=== PATIENT | female | born 1955 | race Hispanic/Latino ===

== ENCOUNTER 2021-09-19 08:48 | Observation (INO) | payer OTHER ==
[2021-09-16 11:20] LABS: BASOPHILS % (AUTO) 0.8 % (0.0-5.0); EOSINOPHILS % (AUTO) 1.1 % (0.0-8.0); HEMATOCRIT 39.9 % (36-48); LYMPHOCYTES % (AUTO) 26.8 % (21.0-51.0); MEAN CORPUSCULAR HEMOGLOBIN 31.4 pg (27.0-33.0); MEAN CORPUSCULAR HGB CONC 33.8 g/dL (32.0-36.0); MEAN CORPUSCULAR VOLUME 92.8 fL (79-99); MONOCYTES % (AUTO) 6.3 % (3.0-13.0); NEUTROPHILS % (AUTO) 64.2 % (40.0-77.0); PLATELET COUNT (AUTO) 291 K/uL (130-400); RED CELL DISTRIBUTION WIDTH 11.7 % (11.0-15.5)
[2021-09-16 11:30] LABS: APPEARANCE,URINE Clear (CLEAR); BILIRUBIN,URINE Negative (NEGATIVE); COLOR,URINE Yellow (YELLOW); GLUCOSE, URINE (UA) Negative (NEGATIVE); KETONES,URINE Negative (NEGATIVE); LEUKOCYTE ESTERASE ,URINE Small (NEGATIVE); NITRATE,URINE Negative (NEGATIVE); OCCULT BLOOD,URINE Negative (NEGATIVE); PH,URINE 6.5 (5.0-8.0); PROTEIN,URINE Negative (NEGATIVE)
[2021-09-16 11:35] VITALS: BP 134/64
[2021-09-16 11:37] LABS: CREATININE 0.8 mg/dL (0.5-1.5); POTASSIUM 3.8 mmol/L (3.5-5.1)
[2021-09-16 11:42] LABS: PROTHROMBIN TIME 10.9 SEC (9.6-11.6)
[2021-09-16 12:10] LABS: BACTERIA,URINE Few /HPF (None Seen); RBC,URINE 0-1 /HPF (0-1)
[2021-09-19] VITALS (22 sets, daily range): BP systolic 96–142; BP diastolic 43–89
[~2021-09-19] VITALS: Ht 152.4 cm; Wt 110.0 kg
[~2021-09-19 08:48] MED LIST: AEC81 PO; ALEN70TA80 PO; ATOR10TA69 PO; BLACK ELDERBERRY PO; CEFAZOLIN SODIUM 1 GM VIAL IVP SCH; DULA1.5P SQ; DULO60CA64 PO; FOLI-103 PO; GABA-533 PO; LISI20TA24 PO; METF-444 PO; TOPI50TA24 PO; TRAZ-185 PO
[2021-09-19] MEDS ORDERED: GENTAMICIN SULFATE 240 MG in 0.9%NACL 100ML 100 ML IV SCH (09:00)
[2021-09-19] MEDS ORDERED: 0.9%NACL 1000ML 1,000 ML IV ONE ×2 (09:47)
[2021-09-19] MEDS ORDERED: CELECOXIB 200 MG CAP ONE (13:18)
[2021-09-19] MEDS ORDERED: KETOROLAC 15MG/ML VIAL (15MG/ML) ONE (13:18)
[2021-09-19] MEDS ORDERED: ACETAMINOPHEN 500 MG TABLET ONE (13:18)
[2021-09-19] MEDS ORDERED: METOCLOPRAMIDE 10 MG/2 ML VIAL ONE (13:18)
[2021-09-19] MEDS ORDERED: CEFAZOLIN SODIUM 1 GM VIAL ONE (13:20)
[2021-09-19] MEDS ORDERED: TRANEXAMIC ACID 1000MG/10ML ONE ×2 (13:21→17:10)
[2021-09-19] MEDS ORDERED: LIDOCAINE PF 100MG/5ML (2%) SYRINGE 5ML ONE (14:18)
[2021-09-19] MEDS ORDERED: FENTANYL CITRATE PF 50 MCG/1 ML 2ML VIAL ONE ×2 (14:18→15:34)
[2021-09-19] MEDS ORDERED: SUCCINYLCHOLINE CHLORIDE 20 MG/ML 10 ML VIAL ONE (14:18)
[2021-09-19] MEDS ORDERED: ROCURONIUM 10MG/1ML SYR 10 MG/ML ML ONE ×2 (14:19→15:11)
[2021-09-19] MEDS ORDERED: PROPOFOL 10 MG/ML 20ML VIAL IV ONE ×2 (14:19→15:32)
[2021-09-19] MEDS ORDERED: MIDAZOLAM HCL 1 MG/ML 2ML VIAL ONE (14:19)
[2021-09-19] MEDS ORDERED: ROPIVACAINE 0.5% 5MG/ML 30ML IJ ONE (14:20)
[2021-09-19] MEDS ORDERED: EPHEDRINE SULFATE 50 MG/ML AMPULE ONE (14:56)
[2021-09-19] MEDS ORDERED: GLYCOPYRROLATE 1 MG/5 ML SYRINGE ONE ×2 (15:26→17:14)
[2021-09-19] MEDS ORDERED: TEMAZEPAM 15 MG CAPSULE PO PRN (17:00)
[2021-09-19] MEDS ORDERED: POTASSIUM CHLORIDE 20MEQ/100ML 100 ML IV PRN (17:00)
[2021-09-19] MEDS ORDERED: KCL 20 MEQ ERTAB PO PRN (17:00)
[2021-09-19] MEDS ORDERED: POTASSIUM CHLORIDE 10% ELIXIR 20 MEQ/15 ML UDCUP PO PRN (17:00)
[2021-09-19] MEDS: ACETAMINOPHEN 500 MG TABLET PO SCH (17:00)
[2021-09-19] MEDS ORDERED: FERROUS FUMARATE 324 MG TABLET PO PRN (17:00)
[2021-09-19] MEDS ORDERED: OXYCODONE HCL 5 MG TAB PO PRN (17:00)
[2021-09-19] MEDS ORDERED: LIDOCAINE HCL-MPF 1% 2ML VIAL IV PRN (17:00)
[2021-09-19] MEDS ORDERED: CALCIUM CARB 500MG PO PRN (17:00)
[2021-09-19] MEDS ORDERED: DiphenhydrAMINE HCL 50 MG/ML VIAL IVP PRN (17:00)
[2021-09-19] MEDS ORDERED: TRAMADOL HCL 50 MG TABLET PO PRN (17:00)
[2021-09-19] MEDS ORDERED: ONDANSETRON 4MG INJ IVP PRN (17:00)
[2021-09-19] MEDS ORDERED: NEOSTIGMINE 5MG/5ML SYR IV ONE (17:14)
[2021-09-19] MEDS ORDERED: DiphenhydrAMINE HCL 50 MG/ML VIAL ONE (18:00)
[2021-09-19] MEDS ORDERED: MEPERIDINE-PF 25 MG/ML SYG ONE (18:10)
[2021-09-19] MEDS ORDERED: PREGABALIN 25 MG CAP PO SCH (21:00)
[2021-09-19] MEDS: INSULIN HUMULIN R 100 UNIT/ML 3ML SQ SCH (21:00)
[2021-09-19] MEDS: FAMOTIDINE 20MG TAB PO SCH (21:12)
[2021-09-19] MEDS: CELECOXIB 200 MG CAP PO SCH (21:13)
[2021-09-19] MEDS: 0.9%NACL 1000ML 1,000 ML IV SCH (21:14)
[2021-09-19] MEDS: CEFAZOLIN SODIUM 1 GM VIAL IVP SCH (21:18)
[2021-09-20 00:30] VITALS: BP 123/64
[2021-09-20] MEDS: 0.9%NACL 1000ML 1,000 ML IV SCH ×2 (03:00→08:51)
[2021-09-20] MEDS: ACETAMINOPHEN 500 MG TABLET PO SCH ×3 (03:21→21:27)
[2021-09-20 04:00] VITALS: BP 123/67
[2021-09-20 04:14] LABS: HEMATOCRIT 35.3 % (36-48); MEAN CORPUSCULAR HEMOGLOBIN 31.2 pg (27.0-33.0); MEAN CORPUSCULAR VOLUME 97.5 fL (79-99); RED BLOOD CELL COUNT(AUTO) 3.62 MIL/uL (4.00-5.50); RED CELL DISTRIBUTION WIDTH 11.8 % (11.0-15.5); WHITE BLOOD COUNT (AUTO) 11.8 K/uL (4.8-10.8)
[2021-09-20 04:32] LABS: CREATININE 0.9 mg/dL (0.5-1.5); POTASSIUM 4.4 mmol/L (3.5-5.1)
[2021-09-20] MEDS: CEFAZOLIN SODIUM 1 GM VIAL IVP SCH (06:14)
[2021-09-20] MEDS: INSULIN HUMULIN R 100 UNIT/ML 3ML SQ SCH ×4 (06:16→21:00)
[2021-09-20 07:58] VITALS: BP 139/63
[2021-09-20] MEDS: FAMOTIDINE 20MG TAB PO SCH ×2 (08:49→21:21)
[2021-09-20] MEDS: TOPIRAMATE 25 MG TABLET PO SCH ×2 (08:49→21:20)
[2021-09-20] MEDS: DULOXETINE HCL 30 MG CAP PO SCH ×2 (08:49→17:04)
[2021-09-20] MEDS: APIXABAN 2.5 MG TABLET PO SCH ×2 (08:50→21:21)
[2021-09-20] MEDS: METFORMIN HCL 500 MG TABLET PO SCH ×2 (08:50→16:59)
[2021-09-20] MEDS: LISINOPRIL 20 MG TABLET PO SCH (08:50)
[2021-09-20] MEDS: CELECOXIB 200 MG CAP PO SCH ×2 (08:50→21:21)
[2021-09-20] MEDS: POLYETHYLENE GLYCOL 3350 17 GM POWD.PACK PO SCH (08:51)
[2021-09-20] MEDS ORDERED: GABAPENTIN 100 MG CAPSULE PO SCH (09:00)
[2021-09-20] MEDS ORDERED: NON-FORMULARY MEDICATION 1 EACH (Topiramate 50 MG) PO SCH (09:00)
[2021-09-20] MEDS ORDERED: NON-FORMULARY MEDICATION 1 EACH (Duloxetine HCl 60 MG) PO SCH (09:00)
[2021-09-20] MEDS ORDERED: NON-FORMULARY MEDICATION 1 EACH (Gabapentin 400 MG) PO SCH (09:00)
[2021-09-20 10:52] VITALS: BP 136/68
[2021-09-20] MEDS: GABAPENTIN 100 MG CAPSULE PO SCH ×2 (13:47→21:22)
[2021-09-20] MEDS: OXYCODONE HCL 5 MG TAB PO PRN (15:49)
[2021-09-20 16:05] VITALS: BP 137/76
[2021-09-20 20:27] VITALS: BP 128/60
[2021-09-20] MEDS: TRAZODONE HCL 50 MG TAB PO SCH (21:21)
[2021-09-20] MEDS: ATORVASTATIN 10 MG TABLET PO SCH (21:21)
[2021-09-21] VITALS (7 sets, daily range): BP systolic 114–139; BP diastolic 65–95
[2021-09-21] MEDS: INSULIN HUMULIN R 100 UNIT/ML 3ML SQ SCH ×4 (06:26→20:52)
[2021-09-21] MEDS: OXYCODONE HCL 5 MG TAB PO PRN ×2 (06:29→10:13)
[2021-09-21] MEDS: GABAPENTIN 100 MG CAPSULE PO SCH ×3 (06:29→22:35)
[2021-09-21] MEDS: ACETAMINOPHEN 500 MG TABLET PO SCH ×3 (06:30→22:35)
[2021-09-21] MEDS: FAMOTIDINE 20MG TAB PO SCH ×2 (10:12→19:48)
[2021-09-21] MEDS: DULOXETINE HCL 30 MG CAP PO SCH ×2 (10:12→19:48)
[2021-09-21] MEDS: TOPIRAMATE 25 MG TABLET PO SCH ×2 (10:13→19:49)
[2021-09-21] MEDS: CELECOXIB 200 MG CAP PO SCH ×2 (10:13→19:49)
[2021-09-21] MEDS: APIXABAN 2.5 MG TABLET PO SCH ×2 (10:14→19:48)
[2021-09-21] MEDS: LISINOPRIL 20 MG TABLET PO SCH (10:18)
[2021-09-21] MEDS: METFORMIN HCL 500 MG TABLET PO SCH ×2 (10:18→16:11)
[2021-09-21] MEDS: POLYETHYLENE GLYCOL 3350 17 GM POWD.PACK PO SCH (10:18)
[2021-09-21] MEDS: TRAZODONE HCL 50 MG TAB PO SCH (19:48)
[2021-09-21] MEDS: ATORVASTATIN 10 MG TABLET PO SCH (19:49)
[2021-09-22 04:32] VITALS: BP 127/65
[2021-09-22] MEDS: GABAPENTIN 100 MG CAPSULE PO SCH ×2 (06:02→14:31)
[2021-09-22] MEDS: ACETAMINOPHEN 500 MG TABLET PO SCH ×2 (06:03→14:32)
[2021-09-22] MEDS: INSULIN HUMULIN R 100 UNIT/ML 3ML SQ SCH ×2 (06:06→11:30)
[2021-09-22 08:11] VITALS: BP 140/74
[2021-09-22] MEDS: OXYCODONE HCL 5 MG TAB PO PRN (09:15)
[2021-09-22] MEDS: TOPIRAMATE 25 MG TABLET PO SCH (09:15)
[2021-09-22] MEDS: FAMOTIDINE 20MG TAB PO SCH (09:16)
[2021-09-22] MEDS: POLYETHYLENE GLYCOL 3350 17 GM POWD.PACK PO SCH (09:16)
[2021-09-22] MEDS: LISINOPRIL 20 MG TABLET PO SCH (09:16)
[2021-09-22] MEDS: APIXABAN 2.5 MG TABLET PO SCH (09:16)
[2021-09-22] MEDS: CELECOXIB 200 MG CAP PO SCH (09:16)
[2021-09-22] MEDS: DULOXETINE HCL 30 MG CAP PO SCH (09:16)
[2021-09-22] MEDS: METFORMIN HCL 500 MG TABLET PO SCH (09:18)
[2021-09-22 10:54] VITALS: BP 120/75
[2021-09-22] MEDS ORDERED: HYDR-4060 PO (12:58)
[2021-09-22] MEDS ORDERED: APIX2.5T PO (12:58)
[2021-09-22] MEDS ORDERED: BISACODYL 10 MG SUPP.RECT RC PRN (17:00)
== END 2021-09-22 16:45 ==
LOC: DAH 08:48 → DAHIP 08:49 → DAH 08:49 → 4AH 18:08
PROVIDERS: ADMIT Orthopaedic Surgery; ATTEND Orthopaedic Surgery
DX: M17.11 Unilateral primary osteoarthritis, right knee (principal); Z20.822 Contact with and (suspected) exposure to COVID-19; E11.9 Type 2 diabetes mellitus without complications; I10 Essential (primary) hypertension; E66.9 Obesity, unspecified; F41.8 Other specified anxiety disorders; Z68.42 Body mass index [BMI] 45.0-49.9, adult; Z79.899 Other long term (current) drug therapy; Z90.710 Acquired absence of both cervix and uterus; Z90.711 Acquired absence of uterus with remaining cervical stump
CPT/HCPCS: 27447; 36415 ×2; 64447; 76942; 80048 ×2; 81001; 82948 ×13; 85025; 85027; 85610; 87088; 87635; 87641; 96365; 96375; 96376; 97039 ×6; 97116 ×6; 97161; 97530 ×3; A4215; A4221; A4222; A4223; A4649 ×4; A4663; A4930 ×2; A9272; C1776; C9803; G0378 ×68; J0330; J0690 ×4; J1580; J1885; J2001; J2175; J2250; J2704 ×2; J2710; J2765; J2795; J3010 ×2; J3490 ×5; J7030 ×4; 96374; J1200

== ENCOUNTER 2022-02-20 09:52 | Observation (INO) | payer OTHER ==
[2022-02-17 09:39] LABS: APPEARANCE,URINE Clear (CLEAR); BILIRUBIN,URINE Negative (NEGATIVE); COLOR,URINE Yellow (YELLOW); GLUCOSE, URINE (UA) Negative (NEGATIVE); KETONES,URINE Negative (NEGATIVE); LEUKOCYTE ESTERASE ,URINE Moderate (NEGATIVE); NITRATE,URINE Negative (NEGATIVE); OCCULT BLOOD,URINE Negative (NEGATIVE); PROTEIN,URINE Negative (NEGATIVE)
[2022-02-17 10:04] LABS: RBC,URINE 0-1 /HPF (0-1)
[2022-02-17 10:05] LABS: BACTERIA,URINE Few /HPF (None Seen); SQUAMOUS EPITHELIAL CELL,UR 0-2 /HPF (0-2); WBC,URINE 0-1 /HPF (0-1)
[2022-02-17 10:15] VITALS: BP 145/70
[~2022-02-20] VITALS: Ht 154.9 cm; Wt 112.7 kg
[2022-02-20] VITALS (23 sets, daily range): BP systolic 125–156; BP diastolic 45–84
[~2022-02-20 09:52] MED LIST changes: +ARIP15TA18 PO; -CEFAZOLIN SODIUM 1 GM VIAL IVP SCH
[2022-02-20] MEDS ORDERED: 0.9%NACL 1000ML 1,000 ML IV ONE (10:01)
[2022-02-20] MEDS: CEFAZOLIN SODIUM 1 GM VIAL ONE ×4 (10:08→15:59)
[2022-02-20] MEDS ORDERED: SUCCINYLCHOLINE CHLORIDE 20 MG/ML 10 ML VIAL ONE (13:19)
[2022-02-20] MEDS ORDERED: PROPOFOL 10 MG/ML 20ML VIAL IV ONE ×2 (13:20→15:56)
[2022-02-20] MEDS ORDERED: GLYCOPYRROLATE 1 MG/5 ML SYRINGE ONE ×2 (13:20→17:45)
[2022-02-20] MEDS ORDERED: NEOSTIGMINE 5MG/5ML SYR IV ONE (13:20)
[2022-02-20] MEDS ORDERED: ONDANSETRON 4MG INJ ONE ×2 (13:20→14:50)
[2022-02-20] MEDS ORDERED: DEXAMETHASONE SOD PHOSPHATE 10MG/ML 1ML VIAL ONE (13:20)
[2022-02-20] MEDS ORDERED: MIDAZOLAM HCL 1 MG/ML 2ML VIAL ONE (13:20)
[2022-02-20] MEDS ORDERED: ROCURONIUM 10MG/1ML SYR 10 MG/ML ML ONE (13:21)
[2022-02-20] MEDS ORDERED: FENTANYL CITRATE PF 50 MCG/1 ML 2ML VIAL ONE ×2 (13:21→17:23)
[2022-02-20] MEDS ORDERED: KETOROLAC 15MG/ML VIAL (15MG/ML) ONE (13:32)
[2022-02-20] MEDS ORDERED: ACETAMINOPHEN 500 MG TABLET ONE (13:32)
[2022-02-20] MEDS ORDERED: CELECOXIB 200 MG CAP ONE (13:32)
[2022-02-20] MEDS ORDERED: METOCLOPRAMIDE 10 MG/2 ML VIAL ONE (13:32)
[2022-02-20] MEDS ORDERED: SCOPOLAMINE HYDROBROMIDE 1 EACH ADH..PATCH TD ONE ×2 (13:36→14:20)
[2022-02-20] MEDS ORDERED: TRANEXAMIC ACID 1000MG/10ML ONE ×2 (14:32→17:09)
[2022-02-20] MEDS ORDERED: TRAMADOL HCL 50 MG TABLET PO PRN (17:30)
[2022-02-20] MEDS ORDERED: KCL 20 MEQ ERTAB PO PRN (17:30)
[2022-02-20] MEDS: 0.9%NACL 1000ML 1,000 ML IV SCH (17:30)
[2022-02-20] MEDS ORDERED: POTASSIUM CHLORIDE 20MEQ/100ML 100 ML IV PRN (17:30)
[2022-02-20] MEDS ORDERED: DiphenhydrAMINE HCL 50 MG/ML VIAL IVP PRN (17:30)
[2022-02-20] MEDS ORDERED: LIDOCAINE HCL-MPF 1% 2ML VIAL IV PRN (17:30)
[2022-02-20] MEDS ORDERED: ONDANSETRON 4MG INJ IVP PRN (17:30)
[2022-02-20] MEDS ORDERED: KETOROLAC 15MG/ML VIAL (15MG/ML) IV PRN (17:30)
[2022-02-20] MEDS ORDERED: ACETAMINOPHEN 500 MG TABLET PO SCH (17:30)
[2022-02-20] MEDS ORDERED: POTASSIUM CHLORIDE 10% ELIXIR 20 MEQ/15 ML UDCUP PO PRN (17:30)
[2022-02-20] MEDS ORDERED: FERROUS FUMARATE 324 MG TABLET PO PRN (17:30)
[2022-02-20] MEDS ORDERED: CALCIUM CARB 500MG PO PRN (17:30)
[2022-02-20] MEDS ORDERED: MEPERIDINE-PF 25 MG/ML SYG ONE (17:55)
[2022-02-20] MEDS: INSULIN HUMULIN R 100 UNIT/ML 3ML SQ SCH (21:00)
[2022-02-20] MEDS: ATORVASTATIN 10 MG TABLET PO SCH (21:21)
[2022-02-20] MEDS: TOPIRAMATE 25 MG TABLET PO SCH (21:21)
[2022-02-20] MEDS: DULOXETINE HCL 30 MG CAP PO SCH (21:21)
[2022-02-20] MEDS: ARIPIPRAZOLE 5 MG TABLET PO SCH (21:21)
[2022-02-20] MEDS: CELECOXIB 200 MG CAP PO SCH (21:21)
[2022-02-20] MEDS: TRAZODONE HCL 50 MG TAB PO SCH (21:22)
[2022-02-20] MEDS: FAMOTIDINE 20MG TAB PO SCH (21:22)
[2022-02-20] MEDS: GABAPENTIN 100 MG CAPSULE PO SCH (21:22)
[2022-02-20] MEDS: ACETAMINOPHEN 500 MG TABLET PO SCH (21:23)
[2022-02-20] MEDS: ASPIRIN 81 MG EC TAB PO SCH (21:23)
[2022-02-20] MEDS ORDERED: CEFAZOLIN SODIUM 1 GM VIAL IVP SCH (22:30)
[2022-02-21] VITALS (8 sets, daily range): BP systolic 110–132; BP diastolic 50–86
[2022-02-21] MEDS: CEFAZOLIN SODIUM 1 GM VIAL IVP SCH ×2 (00:12→09:12)
[2022-02-21] MEDS: 0.9%NACL 1000ML 1,000 ML IV SCH ×2 (02:30→13:30)
[2022-02-21 04:06] LABS: HEMATOCRIT 38.2 % (36-48); MEAN CORPUSCULAR HEMOGLOBIN 29.7 pg (27.0-33.0); MEAN CORPUSCULAR HGB CONC 32.5 g/dL (32.0-36.0); MEAN CORPUSCULAR VOLUME 91.6 fL (79-99); RED BLOOD CELL COUNT(AUTO) 4.17 MIL/uL (4.00-5.50); RED CELL DISTRIBUTION WIDTH 12.3 % (11.0-15.5)
[2022-02-21 04:26] LABS: CREATININE 0.7 mg/dL (0.5-1.5); POTASSIUM 4.3 mmol/L (3.5-5.1)
[2022-02-21] MEDS: ACETAMINOPHEN 500 MG TABLET PO SCH ×3 (04:47→20:55)
[2022-02-21] MEDS: OXYCODONE HCL 5 MG TAB PO PRN ×3 (04:49→14:37)
[2022-02-21] MEDS: INSULIN HUMULIN R 100 UNIT/ML 3ML SQ SCH ×4 (06:30→20:56)
[2022-02-21] MEDS: POLYETHYLENE GLYCOL 3350 17 GM POWD.PACK PO SCH (09:12)
[2022-02-21] MEDS: TOPIRAMATE 25 MG TABLET PO SCH ×2 (09:13→20:55)
[2022-02-21] MEDS: METFORMIN HCL 500 MG TABLET PO SCH ×2 (09:13→16:36)
[2022-02-21] MEDS: DULOXETINE HCL 30 MG CAP PO SCH ×2 (09:13→20:55)
[2022-02-21] MEDS: ASPIRIN 81 MG EC TAB PO SCH ×2 (09:13→20:55)
[2022-02-21] MEDS: GABAPENTIN 100 MG CAPSULE PO SCH ×3 (09:13→20:57)
[2022-02-21] MEDS: CELECOXIB 200 MG CAP PO SCH ×2 (09:13→20:55)
[2022-02-21] MEDS: LISINOPRIL 20 MG TABLET PO SCH (09:14)
[2022-02-21] MEDS: FAMOTIDINE 20MG TAB PO SCH (20:55)
[2022-02-21] MEDS: ATORVASTATIN 10 MG TABLET PO SCH (20:55)
[2022-02-21] MEDS: ARIPIPRAZOLE 5 MG TABLET PO SCH (20:55)
[2022-02-21] MEDS: TRAZODONE HCL 50 MG TAB PO SCH (20:55)
[2022-02-22 03:20] VITALS: BP 153/79
[2022-02-22] MEDS: OXYCODONE HCL 5 MG TAB PO PRN ×3 (03:24→13:26)
[2022-02-22] MEDS: ACETAMINOPHEN 500 MG TABLET PO SCH ×2 (05:48→13:26)
[2022-02-22] MEDS: INSULIN HUMULIN R 100 UNIT/ML 3ML SQ SCH ×3 (06:29→16:30)
[2022-02-22 08:00] VITALS: BP 110/64
[2022-02-22] MEDS: GABAPENTIN 100 MG CAPSULE PO SCH ×2 (08:10→13:25)
[2022-02-22] MEDS: POLYETHYLENE GLYCOL 3350 17 GM POWD.PACK PO SCH (08:10)
[2022-02-22] MEDS: ASPIRIN 81 MG EC TAB PO SCH (08:11)
[2022-02-22] MEDS: DULOXETINE HCL 30 MG CAP PO SCH (08:12)
[2022-02-22] MEDS: CELECOXIB 200 MG CAP PO SCH (08:12)
[2022-02-22] MEDS: TOPIRAMATE 25 MG TABLET PO SCH (08:13)
[2022-02-22] MEDS: METFORMIN HCL 500 MG TABLET PO SCH (08:13)
[2022-02-22] MEDS: LISINOPRIL 20 MG TABLET PO SCH (08:13)
[2022-02-22 12:00] VITALS: BP 127/73
[2022-02-22 16:45] VITALS: BP 112/67
[2022-02-22] MEDS ORDERED: AEC81 PO ×2 (17:41→18:28)
[2022-02-22] MEDS ORDERED: HYDR-4060 PO (18:28)
[2022-02-23] MEDS ORDERED: BISACODYL 10 MG SUPP.RECT RC PRN (17:30)
[2022-02-27] MEDS ORDERED: ALENDRONATE SODIUM 35 MG TAB PO SCH (06:30)
[2022-02-27] MEDS ORDERED: Dulaglutide (Trulicity) 1.5 MG SQ SCH (09:00)
== END 2022-02-22 19:15 ==
LOC: DAH 09:52 → DAHIP 09:53 → DAH 09:53 → 4AH 19:04
PROVIDERS: ADMIT Orthopaedic Surgery; ATTEND Orthopaedic Surgery
DX: M17.12 Unilateral primary osteoarthritis, left knee (principal); Z20.822 Contact with and (suspected) exposure to COVID-19; I10 Essential (primary) hypertension; E11.9 Type 2 diabetes mellitus without complications; R26.89 Other abnormalities of gait and mobility; M25.562 Pain in left knee; G89.29 Other chronic pain; F41.9 Anxiety disorder, unspecified; F32.9 Major depressive disorder, single episode, unspecified; E66.9 Obesity, unspecified; Z90.711 Acquired absence of uterus with remaining cervical stump; Z96.651 Presence of right artificial knee joint; Z90.710 Acquired absence of both cervix and uterus; Z79.899 Other long term (current) drug therapy; Z98.890 Other specified postprocedural states; Z68.42 Body mass index [BMI] 45.0-49.9, adult
CPT/HCPCS: 27447; 36415; 64447; 76942; 80048; 81001; 82948 ×12; 85027; 87088; 87635; 87641; 96374; 96375; 96376; 97039 ×4; 97116 ×4; 97161; 97530 ×4; A4215; A4216; A4221; A4222; A4223; A4600; A4649 ×5; A4657; A4663; A5120; A9272; C1776; C9803; G0378 ×46; J0330; J0690 ×4; J1100; J1885 ×2; J2175; J2250; J2405 ×2; J2704 ×2; J2710; J2765; J3010 ×2; J3490 ×4; J7030 ×3